=== PATIENT | male | born 1975 | race Caucasian/White ===

== ENCOUNTER 2023-06-22 14:18 | Emergency (ER) | payer BC ==
[2023-06-22 14:33] VITALS: BP 133/92; PULSE 94
[2023-06-22] MEDS ORDERED: Lidocaine 1% 5 ML VIAL INJECT ONE (14:47)
[2023-06-22] MEDS ORDERED: Diphtheria,Pertussis(Acell),Tetanus Vaccine 0.5 ML Syringe IM ONE (14:47)
== END 2023-06-22 15:43 | disposition home or self-care (01) ==
LOC: MW.ED 14:18
DX: S61.412A Laceration without foreign body of left hand, initial encounter (principal); Z23 Encounter for immunization; F17.210 Nicotine dependence, cigarettes, uncomplicated; Z90.49 Acquired absence of other specified parts of digestive tract; Z79.899 Other long term (current) drug therapy; W26.8XXA Contact with other sharp object(s), not elsewhere classified, initial encounter
CPT/HCPCS: 12002; 90471; 90715; 99282-25; 99283; J3490

== ENCOUNTER 2025-06-07 23:10 | Emergency (ER) | payer SELFPAY ==
[2025-06-08 00:03] VITALS: BP 138/81; PULSE 65
[2025-06-08] MEDS: Tetracaine HCl/PF 0.5% 4 ML Bottle EYEBOTH ONE (00:40)
[2025-06-08] MEDS: Fluorescein 1 MG Ophth Strip EYEBOTH ONE (00:41)
[2025-06-08] MEDS: Ofloxacin 0.3% Ophth Soln 5 ML Bottle EYEBOTH ONE (01:39)
== END 2025-06-08 01:44 | disposition home or self-care (01) ==
LOC: MW.ED 23:10
DX: S05.01XA Injury of conjunctiva and corneal abrasion without foreign body, right eye, initial encounter (principal); S05.02XA Injury of conjunctiva and corneal abrasion without foreign body, left eye, initial encounter; X58.XXXA Exposure to other specified factors, initial encounter; Z79.3 Long term (current) use of hormonal contraceptives; Y93.89 Activity, other specified
CPT/HCPCS: 99283; J3490